=== PATIENT | female | born 1970 | race Caucasian/White ===

== ENCOUNTER 2016-08-04 21:33 | Emergency (ER) | payer OTHER ==
[~2016-08-04 21:33] MED LIST: ACETAMINOPHEN PO; ALLERG; ANEXSIA 7.5/3251 TA1 PO; AUGMENTIN PO; AUGMENTIN875 MG PO; BACLOFEN10 MG PO; BACTRIM DS TABL1 TA1 PO; BENADRYL25 M1 PO; BUTALB-ACETAMI1 EAC2 PO; CLARITIN10 M3 PO; FIORICET 50-321 EACH PO; FIORICET1 TAB PO; FLEXERIL10 M1 PO; FLEXERIL10 MG PO; FLONASE16 GM; HYDROCODONE/APA1 T15 PO; IBUPROFEN800 MG PO; IMITREX PO; LEVOTHYROXINE50 MCG PO; MEDROL DOSEPAK4 MG PO; MIGRAINE MED; MUCINEX DM TABL1 BOX; NO MEDICATIONS; NORCO 5/325 TAB1 TAB PO; NORCO1 TAB 10/3 PO; OTC PAIN RELIEVER; PHENERGAN25 M1 PO; PROTONIX PO; REGLAN PO; REGLAN10 MG PO; RHINOCORT AQUA8.6 GM; RIZATRIPTAN10 M2 PO; SUMATRIPTAN SU100 MG PO; ZANAFLEX4 M1 PO; ZITHROMAX PO; ZOFRAN ODT4 MG PO; ZOFRAN PO; ZYRTEC PO
== END 2016-08-04 22:32 | disposition home or self-care (01) ==
LOC: SED 21:33
DX: R51 Headache (principal); I10 Essential (primary) hypertension; Z79.899 Other long term (current) drug therapy; Z87.891 Personal history of nicotine dependence
CPT/HCPCS: 96372; 99283; J0780